=== PATIENT | female | born 1990 | race African-American/Black ===

== ENCOUNTER 2021-06-08 18:37 | Observation (INO) | payer SELFPAY ==
[~2021-06-08] VITALS: Ht 165.1 cm; Wt 98.4 kg
== END 2021-06-08 19:15 | disposition home or self-care (01) ==
LOC: SPU 18:37
PROVIDERS: ADMIT Obstetrics & Gynecology; ATTEND Obstetrics & Gynecology
DX: O26.892 Other specified pregnancy related conditions, second trimester (principal); R10.30 Lower abdominal pain, unspecified; O26.852 Spotting complicating pregnancy, second trimester; Z3A.24 24 weeks gestation of pregnancy
CPT/HCPCS: 81002; G0378